=== PATIENT | male | born 1935 | race Caucasian/White ===

== ENCOUNTER 2017-02-10 05:21 | Day surgery (SDC) | payer MEDICARE, BC ==
[~2017-02-10] VITALS: Ht 175.3 cm; Wt 90.8 kg
[~2017-02-10 05:21] MED LIST: ASA325 MG PO; GLUCOPHAGE1000 MG PO; NASAREL NASAL S25 ML NS; NEURONTIN DPS300 MG PO; OYSCO-500500 MG PO; PROVENTIL HFA6.7 GM IH; SPIRIVA18 MCG IH; SURFAK DPS240 MG PO; TOPROL XL DPS50 MG PO; TYLENOL-DPS325 MG PO; ULTRAM DPS50 MG PO; VITAMIN D2000 UNI1 PO; ZOCOR DPS10 MG PO; ZYRTEC DPS10 MG PO
--- NOTE | 2017-02-14 09:33 | OR ---
ADMIT: 02/10/2017 RM/LOC: [facility] MR#: [id number] [id number] [address] MIGUELARPITVALERIE Sommer [address] [place] [address] Operative/Delivery Room Report SEX: M AGE: 81 : 1935 SURGERY DATE: 02/10/2017 SURGEON: Ck Durán MD PREOPERATIVE DIAGNOSES: 1. Chronic sinusitis, left maxillary, left middle turbinate rosario bullosa. 2. Right middle turbinate rosario bullosa. POSTOPERATIVE DIAGNOSES: 1. Chronic sinusitis, left maxillary, left middle turbinate rosario bullosa. 2. Right middle turbinate rosario bullosa. OPERATION: 1. Functional endoscopic sinus surgery including left maxillary antrostomy with removal of fungus ball. 2. Bilateral middle turbinate reduction with removal of left middle turbinate fungus ball. ANESTHESIA: General oral endotracheal. BLOOD LOSS: 20 mL. COMPLICATIONS: None. PACKING: Xerogel middle meatus bilateral. DESCRIPTION OF PROCEDURE: With the patient in supine position, general endotracheal anesthesia, his eyes were taped. Anterior face cleansed. The patient draped sterilely. Nose was examined with a nasal speculum. Cottonoid pledgets with 4% cocaine were placed medial to each of the middle and inferior turbinates. After decongestion, the 0 degree endoscope was used to visualize the nasal cavity, middle turbinates, middle meatus. Middle turbinates were both large, bulbous, and hyperemic. Left middle meatus with edema and mucopurulent discharge. The turbinates and middle meatal tissues were infiltrated with Xylocaine with epinephrine 1:100,000, and after good nasal constriction, lateral portion of each middle turbinate was removed with the suction shaver and straight cutting forceps. The left contained a fungus ball, which was removed. Specimen, which was sent for culture. Remainder cleaned with the suction shaver allowing a patent middle meatus and good visualization of the uncinate process. The right middle turbinate rosario bullosa was treated in the same fashion. There was no evidence of active infection within the right middle turbinate, and the middle meatus was patent following the dissection. The left maxillary sinus was then opened using the side-biting cutting forceps and suction shaver to trim the uncinate process, and this allowed access to the natural os of the maxillary sinus, which was enlarged with the straight and side-biting cutting forceps. Dissection was performed to delineate the maxillary infundibulum. The anterior ethmoid remained intact. 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 There was a small dehiscence exposing the orbital fat, which was left undisturbed and postoperatively experienced no orbital edema, proptosis, or symptoms. Following antrostomy, the maxillary sinus was visualized with 45- degree scope. It was filled with a large fungus ball. It was removed with curved antral suction and curved ball-tip probes allowing complete cleaning of the left maxillary sinus. Following debridement, hydrogen peroxide was placed and cleaned with aspiration. There were no other residual infection or abnormalities identified. Xerogel was placed in the middle meatus expanded with saline bilaterally. He tolerated his procedure very well. He emerged from general anesthesia in the operating room, was extubated in the operating room, was transferred to the recovery room in good condition. Again, pupils are equal. Extraocular movements intact, and no proptosis. Ck Durán MD/ carlo JOB #: [id number] CC: Ck Durán, Attending Physician Rolando Rebollar, Family Physician
--- NOTE | 2017-02-16 09:02 | HP ---
ADMIT: 02/10/2017 RM/LOC: [facility] MR#: [id number] [address] CASH RIVERA [address] [place] [address] Pre-OP History and Physical SEX: M AGE: 81 : 1935 DATE OF SERVICE: HISTORY OF PRESENT ILLNESS: Mr. Rivera is an 81-year-old admitted for endoscopic sinus surgery in treatment of a chronically opacified left maxillary sinus and left middle turbinate rosario bullosa. He has had evaluation initially in July 2016 identifying the chronically infected sinuses and he has been on medical treatment. Culture was obtained. Had initial examination and his antibiotics have been continued orally as well as topical therapy including nasal irrigation, topical corticosteroid spray. Despite all efforts, the sinus infection difficulties have persisted. His symptoms have improved. There has been less drainage, less cough, and less facial pressure and headaches, but recent CT scan shows persistence of an opacified left maxillary sinus and left middle turbinate rosario bullosa. The configuration of the opacification in the left maxillary sinus is consistent with a fungus ball. Surgical intervention has been recommended. The rationale, the risks, the postop course have been discussed in detail which Mr. Rivera is in good understanding and acceptance of. He is admitted at this time for general anesthesia. MEDICATIONS: Prior: 1. Glipizide. 2. Etodolac. 3. Metformin. 4. Simvastatin. 5. Loratadine. 6. Flunisolide. 7. Proventil. 8. Spiriva. 9. Meclizine. ALLERGIES: NO MEDICINES KNOWN. PAST MEDICAL HISTORY: Leg and ankle surgeries. REVIEW OF SYSTEMS: Positive for lower respiratory bronchoconstriction and adult-onset diabetes. He does not have known cardiovascular, hematologic, or neurologic disorders. SOCIAL HISTORY: He does not use alcohol, caffeine, or tobacco. FAMILY HISTORY: No known anesthetic complications or coagulopathies. PHYSICAL EXAMINATION: GENERAL: An 81-year-old, very cooperative, alert, well- developed, nourished. HEENT: Pupils are equal. Conjunctivae clear. No proptosis. Extraocular movements intact. Ears: Canals, TMs, and middle ears clear. Nose: Mild nasal congestion. No gross purulence, polyps, or lesions in the nasal cavity. Middle turbinates are prominent. Nasopharynx, erythema. No exudate or lesions. Hypopharynx and larynx normal. ADMIT: 02/10/2017 RM/LOC: [facility] MR#: [id number] [address] [facility] [address] [place] [address] Pre-OP History and Physical SEX: M AGE: 81 : 1935 NECK: No masses. No adenopathy, thyromegaly, nodules, or asymmetry. LUNGS: Clear. No wheeze. HEART: Rhythm regular. EXTREMITIES: Normal. IMPRESSION: 1. Chronic sinusitis, left maxillary, left middle turbinate rosario bullosa, probable fungus ball. 2. Adult-onset diabetes. 3. Lower respiratory bronchoconstriction. PLAN: Functional endoscopic sinus surgery with left maxillary antrostomy with debridement of left maxillary sinus, reduction of rosario bullosa. Ck Durán MD/ carlo JOB #: [id number] CC: Ck Durán, Attending Physician UNKNOWN, Family Physician
== END 2017-02-10 10:44 | disposition home or self-care (01) ==
LOC: SSS 05:21
PROC: 09BL8ZZ Excision of Nasal Turbinate, Via Natural or Artificial Opening Endoscopic (ICD-10-PCS; principal; 2017-02-10)
PROC: 09BR4ZZ Excision of Left Maxillary Sinus, Percutaneous Endoscopic Approach (ICD-10-PCS; principal; 2017-02-10)
DX: J32.0 Chronic maxillary sinusitis (principal); J34.9 Unspecified disorder of nose and nasal sinuses; I10 Essential (primary) hypertension; E11.8 Type 2 diabetes mellitus with unspecified complications; Z79.899 Other long term (current) drug therapy